=== PATIENT | female | born 1990 | race Caucasian/White ===

== ENCOUNTER 2019-01-16 14:27 | Emergency (ER) | payer OTHER, BC, SELFPAY ==
[2019-01-16 14:28] VITALS: BP 120/71; PULSE 58; RESP 16; TEMP 36.6; O2SAT 100; BMI 25.0
--- NOTE | 2019-01-16 14:47 | ED.VIS.UPPEX ---
History of Present Illness Chief Complaint: Upper Extremity Injury Detail of Chief Complaint: Right wrist injury Informant: Patient Occurred: Yesterday Mechanism/Context: Work Related Onset: Yesterday Context: Sudden Onset Timing: Waxes and wanes Quality of Pain: Aching Current Severity: Mild Maximum Severity: Mild Associated Symptoms: Negative for: Parasthesia Narrative: Patient presents approximate 24 hours after injuring her right wrist at work. She works at the [employer] and was in a performance last evening. She states she ran off stage and struck her right wrist against a prop that was sitting in the wrong location. She has been wrapping it and icing it, but continues to have pain and ecchymosis. She denies paresthesias. Past Medical History - Allergies and Home Meds Allergies/Adverse Reactions: Allergies No Known Allergies Allergy (Verified 01/16/19 14:28) Primary Care Physician: [facility],Out of [NON-STAFF] - Past Medical History: - - Reviewed Lives: Spouse/ Significant Other Review of Systems General: Denies: Chills, Fever Cardiovascular: Denies: Chest pain Respiratory: Denies: Dyspnea, Cough Gastrointestinal: Denies: Abdominal pain, Nausea, Vomiting Musculoskeletal: Reports: Arthralgias. Denies: Neck pain, Back pain Neurological: Denies: Weakness, Parasthesia Hematologic: Denies: Easy bleeding Allergy: Denies: Uticaria Physical Exam Vital Signs/Narrative: Vital Signs Temp Pulse Resp BP Pulse Ox 01/16/19 14:28 97.8 F 58 L 16 120/71 100 Inital Vital Signs reviewed: Yes Right Wrist: - - Tenderness to palpation around the radial aspect of the right wrist. Minimal edema and early ecchymosis is noted. She has full range of motion without difficulty. Normal cap refill and sensation noted distally. There is no tenderness at the elbow or shoulder. General: Well nourished, Well developed ENT: No Trauma Neck: Nontender Cardiovascular: Regular rate, Regular rhythm Respiratory: No distress Neurological: Alert, Normal Strength, Normal Sensation Psychological: Normal affect Diagnostic/Tx/Re-eval Clinical Impression(s) from Imaging Studies Wrist X-Ray 01/16/19 14:56 IMPRESSION: No fracture or malalignment. Electronically Signed: Jairo Batista MD at 15:10 EDT , Service support , - Medical Decision Making Test results discussed with patient at bedside. She will continue to use anti-inflammatories as needed for pain. Selvin wrap was applied to her wrist. Disposition: Home ED Disposition - Plan for ED Patient: Disposition: Home or Assisted Living Diagnosis: Wrist contusion Instructions: CONTUSION, Hand Referrals: [facility] Doctor,Out of [NON-STAFF] -
--- NOTE | 2019-01-16 14:56 | RAD_ITS ---
STUDY: X-RAY - RIGHT WRIST REASON FOR EXAM: Female, 28 years old. Injury, pain at the base of the first digit TECHNIQUE: 3 view(s) of the wrist were obtained. COMPARISON: None. FINDINGS: Normal visualized distal radius and ulna. Normal radiocarpal articulation. Normal distal radioulnar articulation. Normal carpal bones. Normal carpal articulations. Normal carpometacarpal articulation of the thumb. Normal second through fifth carpometacarpal articulations. Normal visualized metacarpal bones. The soft tissue structures are unremarkable. RAD/Wrist min 3 Views IMPRESSION: No fracture or malalignment. Electronically Signed: Jairo Batista MD at 15:10 EDT , Service support ,
== END 2019-01-16 15:50 | disposition home or self-care (01) ==
PROVIDERS: Emergency Provider Emergency Medicine
DX: S60.211A Contusion of right wrist, initial encounter (principal); W22.8XXA Striking against or struck by other objects, initial encounter; Y93.02 Activity, running; Y92.9 Unspecified place or not applicable
CPT/HCPCS: 73110; 99282